=== PATIENT | female | born 1975 | race Caucasian/White ===

== ENCOUNTER 2020-02-17 12:56 | Outpatient (CLI) | payer BC, SELFPAY ==
--- NOTE | ~2020-02-17 | MMUS_ITS ---
EXAMINATION: MM diagnostic eleuterio LT w sari, US breast LT complete HISTORY: Left nipple discharge TECHNIQUE: Additional 3-D tomosynthesis images of the left breast were performed and synthetic 2-D im ages were generated. CAD analysis was submitted and interpreted. High resolution left breast ultrasou nd was performed. COMPARISON: Comparison to multiple prior studies sequentially, with oldest reviewed study dated 05/19. FINDINGS: MAMMOGRAPHIC FINDINGS: Breast composed of scattered areas of fibroglandular density. There are no suspicious masses, calcifi cations or architectural distortion in the left breast to suggest malignancy. ULTRASOUND: Left breast ultrasound: Normal heterogeneous echotexture without focal solid or cystic mass. IMPRESSION: 1. No mammographic or sonographic evidence for malignancy in the left breast. 2. Routine yearly screening mammogram and regular clinical breast examination are recommended. BI-RADS Category 1: Negative Reviewed, dictated and finalized at location A. IMPRESSION: 1. No mammographic or sonographic evidence for malignancy in the left breast. 2. Routine yearly screening mammogram and regular clinical breast examination a re recommended. BI-RADS Category 1: Negative
== END 2020-02-17 12:57 | disposition home or self-care (01) ==
PROVIDERS: PCP Family Medicine; Visit Provider Obstetrics & Gynecology
DX: N64.52 Nipple discharge (principal)
CPT/HCPCS: 76641; 77061; 77065; G0279

== ENCOUNTER 2020-07-03 10:02 | Outpatient (CLI) | payer BC, SELFPAY ==
--- NOTE | 2020-07-03 10:43 | ECG_ITS ---
Measurements Intervals [place] Rate: 70 P: 19 RI: 147 QRS: 56 QRSD: 94 T: 3 QT: 376 QTc: 408 Interpretive Statements SINUS RHYTHM WITH SINUS ARRHYTHMIA BORDERLINE ST-T WAVE ABNORMALITY- INFERIOR LEADS BORDERLINE ECG Electronically Signed On 07-03-2020 11:28:41 AREA MECHANIC by Isidro Renteria D.O.
--- NOTE | 2020-07-10 12:42 | WPDHOLTEREM ---
Holter/Event Monitor Holter/Event Monitor Date of procedure: 07/03/20 Procedure Type: 48 hour holter monitor Indications: Palpitations Conclusion: 1. 48 hour holter monitor on 07/03/20. 2. Underlying rhythm is sinus rhythm. HR range 54-122 bpm; average HR 77 bpm. 3. There are 18 premature supraventricular complexes and 1 supraventricular couplet. No supraventricular tachycardia. 4. There are 1,548 premature ventricular complexes, 6 ventricular trigeminy. No ventricular tachycardia. 5. No sinoatrial or atrioventricular blocks. No significant pauses greater than 2 seconds. 6. Patient reports several episodes of palpitations which demonstrate Sinus rhythm, HR range 63-117 and one PVC.
== END 2020-07-03 10:03 | disposition home or self-care (01) ==
LOC: ANHCARD 10:04
PROVIDERS: PCP Family Medicine; Visit Provider Nurse Practitioner Family
DX: R00.2 Palpitations (principal)
CPT/HCPCS: 93005; 93225; 93226

== ENCOUNTER 2020-09-08 12:23 | Emergency (ER) | payer BC, SELFPAY ==
--- NOTE | ~2020-09-08 | XR_ITS ---
EXAMINATION: XR chest 2V DATE: 09/08/2020 13:04 INDICATION: Midsternal chest pain. TECHNIQUE: Frontal and lateral views of the chest were obtained. COMPARISON: None. FINDINGS: The chest demonstrates clear lungs without pneumonia, pleural effusion, or pneumothorax. Th e heart size is normal. IMPRESSION: 1. No acute cardiopulmonary disease. Reviewed, dictated and finalized at location B. H EXAMINER
[2020-09-08 12:18] VITALS: BP 153/105; PULSE 81; RESP 27; TEMP 36.9; O2SAT 100
--- NOTE | 2020-09-08 12:24 | ECG_ITS ---
Measurements Intervals [place] Rate: 97 P: 64 DC: 130 QRS: 52 QRSD: 99 T: -8 QT: 359 QTc: 458 Interpretive Statements SINUS RHYTHM POSSIBLE LEFT ATRIAL ENLARGEMENT BORDERLINE ST-T WAVE ABNORMALITY- INFERIOR LEADS BORDERLINE ECG Electronically Signed On 09-08-2020 13:00:58 SE[employer] POTAT[employer] ARRANGER by Isidro Renteria D.O.
[2020-09-08 12:44] LABS: Basophils Absolute Auto 0.1 K/mm3 (0.0-0.1); Basophils Percent Auto 0.9 % (0.2-1.2); Eosinophils Absolute Auto 0.1 K/mm3 (0-0.3); Eosinophils Percent Auto 0.7 % (0-4.4); Hematocrit 40.7 % (37.0-47.0); Hemoglobin 13.8 g/dL (12.0-15.0); Immature Granulocyte Absolute 0.06 K/mm3 (0.00-0.031); Immature Granulocyte Percent A 0.6 % (0-0.5); Lymphocytes Absolute Auto 2.39 K/mm3 (0.9-3.2); Lymphocytes Percent Auto 21.9 % (18.3-44.2); Mean Corpuscular HGB Conc 33.9 g/dl (32-36); Mean Corpuscular Hemoglobin 30.5 pg (26-34); Mean Corpuscular Volume 89.8 fl (80-100); Mean Platelet Volume 10.1 fl (7.4-10.4); Monocytes Absolute Auto 0.8 K/mm3 (0.1-0.6); Monocytes Percent Auto 6.9 % (2.6-8.5); Neutrophils Absolute Auto 7.5 K/mm3 (1.3-6.7); Platelet Count Result 344 k/mm3 (150-375); Red Blood Count 4.53 M/mm3 (4.2-5.4); Red Cell Distribution Width 12.4 % (11.5-14.5); White Blood Count 10.9 K/mm3 (4.5-10.0)
[2020-09-08 12:50] LABS: INR 0.9; Prothrombin Time 12.5 Seconds (11.1-14.7)
[2020-09-08 12:51] LABS: Partial Thromboplastin Time 26.9 SECONDS (22.3-36.8)
[2020-09-08 12:53] LABS: Anion Gap 8 mmol/L (8-16); Blood Urea Nitrogen 12 mg/dL (7-17); Calcium 9.1 mg/dL (8.4-10.2); Carbon Dioxide 21 mmol/L (22-30); Chloride 108 mmol/L (98-107); Estimated CRCL calculation 100 ml/min; Estimated Glomerular Filt Rate > 60; Glucose 116 mg/dL (65-105); Potassium 3.6 mmol/L (3.4-5.0); Sodium 137 mmol/L (137-145)
[2020-09-08 13:05] LABS: Troponin I < 0.012 ng/mL (0.000-0.034)
[2020-09-08 13:16] LABS: Add Urine Microscopic? YES; Appearance Urine Clear (Clear); Bacteria Urine Trace /hpf; Bilirubin Urine Negative (Negative); Blood Urine 1+ (Negative); Color Urine Straw (Yellow); Glucose Urine UA Negative (Negative); Ketones Urine 1+ mg/dL (Negative); Leukocyte Esterase Ur Negative LEU/UL (Negative); Mucus Urine Rare /lpf; Nitrate Urine Negative (Negative); Protein Urine Negative (Negative); Specific Grav Ur 1.011 (1.001-1.035); Squamous Epithelial Cell Urine Many /hpf (Few); Urobilinogen Urine Negative mg/dL (<2.0); WBC Urine 0-3 /hpf
[2020-09-08 13:20] VITALS: BP 122/78; PULSE 70; RESP 22; O2SAT 100
[2020-09-08 14:14] LABS: D Dimer 0.34 ug/mL (<0.48)
[2020-09-08 14:37] VITALS: BP 129/69; PULSE 77; RESP 22; O2SAT 99
[2020-09-08 16:00] VITALS: BP 121/84; PULSE 71; RESP 19; O2SAT 97
[2020-09-08 16:13] LABS: Troponin I < 0.012 ng/mL (0.000-0.034)
--- NOTE | 2020-09-08 16:51 | ED.GENADULT ---
HPI - General Adult General Chief complaint: Arrhythmia/Palpitations Stated complaint: palpitations, sob Time Seen by Provider: 09/08/20 13:28 History of Present Illness HPI narrative: Patient is a 45-year-old female who presents the emergency department with chief complaint of chest pain. The patient states that she has been having palpitations for some time. Patient has had a Holter monitor on the monitor having large number of PVCs she reports that today she had several episodes of sharp pleuritic pain worse on the left sternal border that radiated to her back. The patient states worsened with inspiration and movement. Related Data Allergies Allergy/AdvReac Type Severity Reaction Status Date / Time ceftriaxone Allergy Intermediate Hives Verified 09/08/20 12:25 iodine Allergy Intermediate hot SOB Verified 09/08/20 12:25 lidocaine Allergy Intermediate used to Verified 09/08/20 12:25 dilute ceftriaxone - allergy may be to ceftriaxone 1. Iodine 2. Betadine Allergy Intermediate SOB Uncoded 07/30/19 08:41 Seafood Allergy Intermediate SOB, Uncoded 07/30/19 08:41 intestinol discomform Review of Systems Review of Systems: Narrative: A 10 system review of systems was completed on the patient and is negative except for what is stated in the HPI. Nursing and ancillary documentation was reviewed. [facility] Past Medical History Medical History GERD without esophagitis Hx of migraines Surgical History Surgical History H/O section 2001, 2007 H/O total hysterectomy (~2012) Fibroids Family History Family History (Reviewed 08/24/20 @ 08:39 by Katheryn Delgadillo [facility]) Father Family history of malignant neoplasm Mother Heart attack Other Family history of malignant neoplasm of breast in first degree relative Social History Social History Smoking status: Never smoker Alcohol intake: current Exam Narrative: Exam Narrative: GENERAL: Well-appearing, well-nourished, and in no acute distress. HEAD: Normocephalic, atraumatic. EYES: PERRLA and EOMI. ENT: Nares clear, no rhinorrhea or epistaxis. Mucous membranes moist. NECK: Supple. CHEST: Clear to auscultation. No respiratory distress. Chest wall is tender to palpation in the sternal borders HEART: Regular rate and rhythm. No murmur heard. Normal peripheral pulses. ABDOMEN: Soft, nontender, nondistended, normal active bowel sounds. EXTREMITIES: Normal range of motion. No edema. SKIN: Warm, dry, no rash. NEURO: No focal deficits. Alert and oriented x3. PSYCH: Normal mood and affect. Course Course Emergency Course: EKG shows sinus rhythm no ST elevation or ST depression Patient had a negative D-dimer troponin was negative x2. Vital Signs Vital signs: Vital Signs Temperature 36.9 C 09/08/20 12:18 Pulse Rate 81 09/08/20 12:18 Respiratory Rate 27 H 09/08/20 12:18 Blood Pressure 153/105 H 09/08/20 12:18 Pulse Oximetry 100 09/08/20 12:18 Temperature 36.9 C 09/08/20 12:18 Pulse Rate 71 09/08/20 16:00 Respiratory Rate 19 09/08/20 16:00 Blood Pressure 121/84 09/08/20 16:00 Pulse Oximetry 97 09/08/20 16:00 Medical Decision Making Vital Signs Vital Signs: Vital Signs Temperature 36.9 C 09/08/20 12:18 Pulse Rate 81 09/08/20 12:18 Respiratory Rate 27 H 09/08/20 12:18 Blood Pressure 153/105 H 09/08/20 12:18 Pulse Oximetry 100 09/08/20 12:18 Temperature 36.9 C 09/08/20 12:18 Pulse Rate 71 09/08/20 16:00 Respiratory Rate 19 09/08/20 16:00 Blood Pressure 121/84 09/08/20 16:00 Pulse Oximetry 97 09/08/20 16:00 Lab Data Result diagrams: 09/08/20 12:29 09/08/20 12:29 Labs: Lab Results 09/08/20 09/08/20 09/08/20 Range/Units 12:29
[2020-09-08 17:18] VITALS: BP 143/95; PULSE 75; RESP 18; O2SAT 100
== END 2020-09-08 17:20 | disposition home or self-care (01) ==
PROVIDERS: Emergency Medicine; Physician Assistant; Emergency Provider Emergency Medicine; Family Provider Family Medicine Adolescent Medicine; PCP Family Medicine
DX: R07.89 Other chest pain (principal); R00.2 Palpitations; K21.9 Gastro-esophageal reflux disease without esophagitis
CPT/HCPCS: 36415; 71046; 80048; 81001; 81025; 84484; 85025; 85380; 85610; 85730; 93005; 99284

== ENCOUNTER 2020-09-12 07:33 | Outpatient (CLI) | payer BC, SELFPAY ==
--- NOTE | 2020-09-12 07:40 | ECHO_ITS ---
Patient Info Name: Karina Garzon Age: 45 years : 1975 Gender: Female Ht: 64 in Wt: 160 lbs BSA: 1.83 m2 HR: 91 bpm BP: 134 / 92 mmHg Technical Quality: Good Exam Date: 09/12/2020 7:54 AM Exam Location: [facility] Pulmonary Patient Status: Outpatient Admit Date: 09/12/2020 Staff Ordering Physician: Jayne Coleman NP Machine Filler Shredder: Jaymie Case RDCS Attending Provider: Jayne Coleman NP Referring Physician: Virginia FERRO; Exam Type: CA echo doppler color flow Study Info Indications R00.2 - Palpitations Complete two-dimensional, color flow and Doppler transthoracic echocardiogram is performed. Summary 1. Complete two-dimensional, color flow and Doppler transthoracic echocardiogram is performed. 2. Left ventricular chamber dimension is normal. 3. Left ventricular systolic function is normal, estimated at 60-65%. 4. The left ventricular diastolic function is normal. 5. E/e' 7 is not elevated. 6. Global longitudinal strain is abnormal at -15.2%. 7. No pulmonary hypertension, estimated pulmonary arterial systolic pressure is 18 mmHg. 8. There is trace pulmonic regurgitation. Left Ventricle E/e' 7 is not elevated. Global longitudinal strain is abnormal at -15.2%. Left ventricular chamber dimension is normal. Left ventricular systolic function is normal, estimated at 60-65%. The left ventricular diastolic function is normal. Right Ventricle Right ventricular chamber dimension is normal. Right ventricular systolic function is normal. Left Atria Left atrial chamber dimension is normal. Right Atria Right atrial chamber dimension is normal. Aortic Valve The aortic valve is trileaflet. There is no aortic valve stenosis. There is no aortic valve regurgitation. Pulmonic Valve There is trace pulmonic regurgitation. Mitral Valve There is no mitral valve stenosis. There is no mitral valve regurgitation. Tricuspid Valve There is no tricuspid valve regurgitation. No pulmonary hypertension, estimated pulmonary arterial systolic pressure is 18 mmHg. Pericardium/Pleural There is no pericardial effusion. Inferior Vena Cava Normal inferior vena cava with >50% collapse upon inspiration consistent with normal right atrial pressure, 5 mmHg. Aorta The aortic root size at the sinus of Valsalva is normal. Left Ventricular Outflow Tract Name Value Normal LVOT 2D LVOT Diameter 2.0 cm LVOT Doppler LVOT Peak Gradient 4 mmHg LVOT Mean Gradient 3 mmHg LVOT VTI 20 cm LVOT VTI/AV VTI Ratio 0.9 LVOT Stroke Volume 66 ml LVOT CO 4.6 l/min LVOT CI 2.5 l/min/m2 Pulmonic Valve Name Value Normal RVOT Doppler RVOT Peak Gr
== END 2020-09-12 07:34 | disposition home or self-care (01) ==
PROVIDERS: Family Provider Family Medicine Adolescent Medicine; PCP Family Medicine; Visit Provider Nurse Practitioner Family
DX: R00.2 Palpitations (principal)
CPT/HCPCS: 93306

== ENCOUNTER 2021-05-21 14:47 | Outpatient (CLI) | payer BC, SELFPAY ==
--- NOTE | ~2021-05-21 | MM_ITS ---
EXAMINATION: MM screening eleuterio BI w sari HISTORY: Screening mammogram, family history of breast cancer in her sister. TECHNIQUE: Craniocaudal and mediolateral oblique 3-D tomosynthesis images were obtained and synthetic 2-D images were generated. CAD analysis was submitted and interpreted. COMPARISON: 02/17/2020, 03/18/2019, 03/03/2018 BREAST PARENCHYMAL COMPOSITION: There are scattered areas of fibroglandular density. FINDINGS: There is no evidence of suspicious mass, calcification, or architectural distortion to sugg est malignancy in either breast. There has been no suspicious interval change. IMPRESSION: 1. No mammographic evidence of malignancy. 2. Recommend routine screening mammography in one year. BI-RADS Category 1: Negative Reviewed, dictated and finalized at location A.
== END 2021-05-21 14:48 | disposition home or self-care (01) ==
LOC: ANHIMG 14:49
PROVIDERS: PCP Family Medicine; Visit Provider Obstetrics & Gynecology
DX: Z12.31 Encounter for screening mammogram for malignant neoplasm of breast (principal)
CPT/HCPCS: 77063; 77067

== ENCOUNTER 2022-08-14 15:16 | Outpatient (CLI) | payer BC, SELFPAY ==
--- NOTE | ~2022-08-14 | MM_ITS ---
EXAMINATION: MM screening eleuterio BI w sari HISTORY: Screening mammogram TECHNIQUE: Craniocaudal and mediolateral oblique 3-D tomosynthesis images were obtained and synthetic 2-D images were generated. CAD analysis was submitted and interpreted. COMPARISON: 05/2021 bilateral screening mammogram 02/17/2020 diagnostic left mammogram and complete left breast ultrasound examination 03/28/2019 bilateral screening mammogram BREAST PARENCHYMAL COMPOSITION: There are scattered areas of fibroglandular density. FINDINGS: There is no evidence of suspicious mass, calcification, or architectural distortion to sugg est malignancy in either breast. There has been no suspicious interval change. IMPRESSION: 1. No mammographic evidence of malignancy. 2. Recommend routine screening mammography in one year. BI-RADS Category 1: Negative Reviewed, dictated and finalized at location A. OUND MIXER
== END 2022-08-14 15:17 | disposition home or self-care (01) ==
LOC: ANHIMG 15:17
PROVIDERS: PCP Family Medicine; Visit Provider Obstetrics & Gynecology
DX: Z12.31 Encounter for screening mammogram for malignant neoplasm of breast (principal)
CPT/HCPCS: 77063; 77067

== ENCOUNTER 2024-07-05 14:29 | Outpatient (CLI) | payer OTHER, BC, SELFPAY ==
--- NOTE | ~2024-07-05 | MM_ITS ---
EXAMINATION: MM screening eleuterio BI w sari HISTORY: Screening mammogram, family history of breast cancer in her sister. TECHNIQUE: Craniocaudal and mediolateral oblique 3-D tomosynthesis images were obtained and synthetic 2-D images were generated. CAD analysis was submitted and interpreted. COMPARISON: 08/14/2022, 05/21/2021, 02/17/2020 BREAST PARENCHYMAL COMPOSITION:Not Dense. There are scattered areas of fibroglandular density. FINDINGS: No suspicious mass, calcification, or architectural distortion are identified in either amilcar ast to suggest malignancy. There has been no suspicious interval change. IMPRESSION: No mammographic evidence of malignancy. Recommend routine screening mammography in one year. BI-RADS Category 1: Negative Reviewed, dictated and finalized at location . OW WORKER
== END 2024-07-05 14:30 | disposition home or self-care (01) ==
LOC: ANHIMG 14:32
PROVIDERS: PCP Family Medicine; Visit Provider Obstetrics & Gynecology
DX: Z12.31 Encounter for screening mammogram for malignant neoplasm of breast (principal)
CPT/HCPCS: 77063; 77067

== ENCOUNTER 2024-12-14 11:38 | Outpatient (CLI) | payer OTHER, BC, SELFPAY ==
--- NOTE | ~2024-12-14 | US_ITS ---
EXAMINATION: US venous doppler [facility] DATE: 12/14/2024 12:34 INDICATION: Left upper limb pain and swelling TECHNIQUE: Grayscale images without and with compression and Doppler images of the left upper extremi ty veins were obtained. COMPARISON: None. FINDINGS: The left internal jugular vein, subclavian vein, axillary vein, brachial vein, basilic vein, cephalic vein, radial vein, and ulnar vein are patent. IMPRESSION: 1. Patent left upper extremity veins. No evidence of venous thrombosis. Reviewed, dictated and finalized at location B.
== END 2024-12-14 11:39 | disposition home or self-care (01) ==
LOC: ANHIMG 11:41
PROVIDERS: PCP Family Medicine; Visit Provider Nurse Practitioner Family
DX: M79.602 Pain in left arm (principal)
CPT/HCPCS: 93971